=== PATIENT | male | born 1985 | race African-American/Black ===

== ENCOUNTER 2021-07-08 22:26 | Emergency (ER) | payer SELFPAY ==
[~2021-07-08] VITALS: Ht 193 cm; Wt 91.0 kg
[2021-07-08 23:13] VITALS: BP 120/65
[2021-07-08] MEDS ORDERED: PENI500T MT (23:21)
[2021-07-08] MEDS ORDERED: IBUP-2030 MT (23:21)
[2021-07-08] MEDS ORDERED: BENZ11.95 TOP (23:21)
== END 2021-07-08 23:32 | disposition home or self-care (01) ==
LOC: ER 22:26
DX: R68.84 Jaw pain (principal)
CPT/HCPCS: 99283